=== PATIENT | female | born 1970 | race Caucasian/White ===

== ENCOUNTER 2019-07-30 13:47 | Emergency (ER) | payer MEDICAID, MEDICARE ==
[~2019-07-30] VITALS: Ht 160 cm; Wt 56.0 kg
[~2019-07-30 13:47] MED LIST: CARI350T PO; CELE-193 PO; GUAI120L55 PO; LANS30CA37 PO; LEVA15HF4 IH; METH4TAB3 PO; NORCO10T PO; PRED20TA PO; ZOLP12.531 PO
[2019-07-30 13:59] VITALS: BP 115/71
[2019-07-30] MEDS ORDERED: BACDS PO (15:43)
[2019-07-30] MEDS ORDERED: MUPI22OI30 TOP (15:43)
== END 2019-07-30 16:20 | disposition home or self-care (01) ==
LOC: ER 13:50 → EDBD 13:50 → MERGE 13:50 → ER 16:20
DX: J34.0 Abscess, furuncle and carbuncle of nose (principal)
CPT/HCPCS: 99283